=== PATIENT | female | born 1970 | race Caucasian/White ===

== ENCOUNTER → 2020-10-04 | Outpatient (CLI) | payer BC ==
[~2020-10-04] MED LIST: ALPRAZOLAM PO; PANT20TA2 PO; SERT50TA PO; WELLBUTRIN PO; ZLP10T PO
--- NOTE | 2020-10-04 13:26 | Diagnostic Imaging Report ---
INDICATION: Routine screening. COMPARISON: 07/10/2018 and 08/09/2013. TECHNIQUE: 2D and 3D bilateral screening mammography was performed with CAD. FINDINGS: Scattered fibroglandular densities are identified bilaterally. There are benign appearing nodules bilaterally. No spiculated mass or malignant-appearing microcalcifications are seen. The axillae are unremarkable. IMPRESSION: No mammographic features suspicious for malignancy are identified. ACR BI-RADS Category 2: Benign findings. Result letter will be mailed to the patient. Note: At least 10% of breast cancer is not imaged by mammography. Dictated by: Dictated on workstation # [id number]
== END ==
PROVIDERS: ATTEND Family Medicine
DX: Z12.31 Encounter for screening mammogram for malignant neoplasm of breast (principal)
CPT/HCPCS: 77063; 77067

== ENCOUNTER → 2020-10-06 | Outpatient (CLI) | payer BC ==
--- NOTE | 2020-10-06 12:10 | Diagnostic Imaging Report ---
EXAMINATION: US Abdomen limited. TECHNIQUE: Multiple real-time grayscale images were obtained over the right upper quadrant in various projections. REASON FOR EXAM: Elevated LFTs. COMPARISON: None. FINDINGS: The liver demonstrates increased echogenicity throughout. There are no focal lesions. No intrahepatic biliary dilatation is present. The common bile duct is not visualized due to overlying bowel gas. The main portal vein is hepatopedal. No ascites is seen in the upper abdomen. There is no evidence of cholelithiasis, gallbladder wall thickening or pericholecystic fluid. Sonographic Hagan's sign is negative. The pancreas is not well-visualized due to overlying bowel gas. The visualized portions of the IVC and aorta appear normal. The right kidney measures approximately 11.7 cm in length and has a normal appearance. IMPRESSION: 1. No cholelithiasis or acute cholecystitis. 2. Hepatic steatosis. No focal hepatic lesions. Dictated by: Dictated on workstation # [id number]
== END ==
LOC: RAD 08:45
PROVIDERS: ATTEND Family Medicine
DX: K76.0 Fatty (change of) liver, not elsewhere classified (principal)
CPT/HCPCS: 76705